=== PATIENT | female | born 1935 | race Caucasian/White ===

== ENCOUNTER 2018-03-10 22:43 | Inpatient (IN) | payer MEDICARE ==
[2018-03-10] MEDS ORDERED: Ondansetron PF 4 MG/2 ML Vial ONE (23:02)
[2018-03-10 23:07] LABS: Actual Bicarbonate (HCO3a) 22.5 mEq/L (22-28); Analyzer IN Cardio ER; Base Excess (BEa) -2.8 mEq/L (-2.0 to +3.0); Calcium, Ionized 1.22 mmol/L (1.12-1.30); Carboxyhemoglobin (COHb) 0.3 gm% (0.0-3.0); Hemoglobin (Hb) 13.5 g/dL (12.0-16.0); O2 Tension (PaO2) 144.8 mmHg (> 60.0); Potassium - ABG Lab 3.56 mmol/L (3.70-5.30); Puncture Site RRA; pH, Arterial 7.36 (7.35-7.45)
[2018-03-10] MEDS ORDERED: Lorazepam 2 MG/ML VIAL ONE (23:08)
[2018-03-10 23:29] LABS: #Basophils 0.1 thou/uL (0.0-0.2); #Eosinphils 0.2 thou/uL (0.0-0.7); #Monocytes 1.1 thou/uL (0.11-0.59); #Neutrophils 9.3 thou/uL (1.40-6.50); %Basophils 0.7 % (0.0-1.0); %Eosinophils 1.3 % (0.0-10.0); %Lymphocytes 27.2 % (21.0-51.0); %Monocytes 7.3 % (0.0-10.0); %Neutrophils 63.6 % (42.0-75.0); Hemoglobin 13.2 g/dL (12.0-16.0); Mean Corpuscular HGB CONC 31.9 g/dL (32.0-36.0); Mean Corpuscular Hemoglobin 30.2 pg (27.0-31.0); Mean Corpuscular Volume 94.9 fL (78.0-98.0); Mean Platelet Volume 7.2 fL (7.4-10.4); Platelet Count 413 thou/uL (130-400); RBC Distribution Width 14.4 % (11.5-14.5); Red Blood Cell (RBC) Count 4.36 mill/uL (4.20-5.40); White Blood Cell (WBC) Count 14.6 thou/uL (4.8-10.8)
--- NOTE | 2018-03-10 23:43 | RAD ---
CHEST ONE VIEW: 03/10/18 INDICATION: Heart problems. COPD with dyspnea. COMPARISON: Prior exam dated 12/19/16. FINDINGS: There is cardiomegaly and mild pulmonary vascular congestion. There is suggestion of tiny pleural eff usions. No acute osseous abnormality is evident. IMPRESSION: Cardiomegaly with mild pulmonary vascular congestion and small pleural effusions suspicious for CHF. POS: [facility]
[2018-03-10 23:50] LABS: ALT (SGPT) 10 U/L (8-55); AST (SGOT) 17 U/L (5-34); Albumin 3.9 g/dL (3.4-4.8); Alkaline Phosphatase 122 U/L (40-150); Anion Gap 11 mmol/L (10-20); BUN (Urea Nitrogen) 22 mg/dL (9.8-20.1); Bilirubin, Total 0.2 mg/dL (0.2-1.2); Calc. Creatinine Clearance 0 mL/min (70-130); Calcium 9.2 mg/dL (7.8-10.44); Carbon Dioxide 25 mmol/L (23-31); Chloride 110 mmol/L (98-107); Estimated GFR-MDRD 57; Globulin 3.3 g/dL (2.4-3.5); Glucose 174 mg/dL (83-110); Potassium 3.5 mmol/L (3.5-5.1); Protein, Total 7.2 g/dL (6.0-8.3); Sodium 142 mmol/L (136-145)
[2018-03-10] MEDS ORDERED: Azithromycin 500 MG VIAL ONE (23:59)
[2018-03-10] MEDS ORDERED: cefTRIAXone\\ROCEPHIN 2 GM VIAL ONE (23:59)
[2018-03-11 05:08] VITALS: BMI 30.7
[2018-03-11] MEDS ORDERED: Ondansetron ODT 4 MG TAB SL PRN (06:00)
[2018-03-11] MEDS ORDERED: Ondansetron PF 4 MG/2 ML Vial IVP PRN ×2 (06:00→06:37)
[2018-03-11] MEDS ORDERED: Acetaminophen 325 MG TAB PO PRN (06:00)
[2018-03-11] MEDS ORDERED: Loratadine 10 MG TAB PO PRN (06:37)
[2018-03-11] MEDS ORDERED: Bisacodyl 5 MG TAB PO PRN (06:37)
[2018-03-11] MEDS ORDERED: Cepastat Lozenges 1 LOZ PO PRN (06:37)
[2018-03-11] MEDS ORDERED: Promethazine 25 MG TAB PO PRN (06:37)
[2018-03-11] MEDS ORDERED: Ondansetron ODT 4 MG TAB PO PRN (06:37)
[2018-03-11] MEDS ORDERED: Acetaminophen 500 MG TAB PO PRN (06:37)
[2018-03-11] MEDS ORDERED: Bupropion 150 MG SR TAB PO SCH (09:00)
[2018-03-11] MEDS ORDERED: PARoxetine 20 MG TAB PO SCH (09:00)
[2018-03-11] MEDS: Enoxaparin Sodium 40 MG/0.4 ML SYRINGE SC SCH ×2 (09:46→09:52)
[2018-03-11] MEDS: predniSONE 20 MG TAB PO SCH ×2 (09:49→10:49)
[2018-03-11] MEDS: Losartan 25 MG TAB PO SCH (09:49)
[2018-03-11] MEDS: Aspirin 81 mg Enteric Coated Tablet PO SCH (09:50)
--- NOTE | 2018-03-11 11:23 | HP ---
DATE OF SERVICE: 03/11/2018 PRIMARY CARE PHYSICIAN: Howard Vasquez M.D. CHIEF COMPLAINT: Shortness of breath. HISTORY OF PRESENT ILLNESS: The patient states that ever since cold front with Halloween, she has struggled with some cough and wheeze. She is compliant with her home medications including Symbicort, ipratropium nebulized treatments p.r.n., albuterol sulfate nebulized treatments p.r.n. Following repeat cold front approximately 2 days ago, the patient decompensated, ended up tripoding last night and was unable to recover despite breathing treatment and called the fire department and was placed on BiPAP en route to the emergency department. The patient was successfully weaned to nasal cannula following several breathing treatments, steroids, and antibiotics. The patient has quit but long tobacco history over 20 years, has a heart history; however, no formal chest pains throughout this episode. Reports stable mood on current medications. REVIEW OF SYSTEMS: No fevers, no chills. Positive fatigue. No vision changes. Positive nasal congestion, runny nose, sore throat, cough, productive sputum, wheezing, shortness of breath, dyspnea at rest. No chest pain, no abdomen pain, no nausea, no vomiting, no diarrhea, no dysuria, no urinary frequency. No lower extremity edema, no confusion or syncopal episode. Formal review of past medical, social, surgical history includes allergies of PENICILLIN, CODEINE, ATORVASTATIN. HOME MEDICATIONS: Include levothyroxine 112 mcg, losartan 50 mg, Ambien 10 mg, paroxetine 40 mg, Wellbutrin-SR 150 mg b.i.d., Symbicort 160/4.5 two puffs twice daily, ipratropium bromide 0.02% solution p.r.n. scheduled b.i.d., albuterol sulfate 0.083% solution 2.5 mg 3 times a day p.r.n. nebulized treatment, aspirin 81 mg. PAST MEDICAL HISTORY: Includes coronary artery disease, essential hypertension , hypothyroidism, COPD, recurrent, major depression, currently in remission, seasonal allergies, statin intolerance. PAST SURGICAL HISTORY: Hysterectomy, appendectomy, coronary artery stent placement. SOCIAL HISTORY: Currently living in independent living with Senior assistance, retired teacher currently . Drinks caffeinated beverages, currently quit tobacco, quit date listed in 1961. FAMILY HISTORY: Significant for mother, father, heart disease. VITAL SIGNS: On arrival to floor, temperature of 98.1, pulse of 67, respiratory rate of 20, oxygen saturation 98% on room. The patient is 98% on 2.5 liters nasal cannula, blood pressure is 118/67. LABORATORY WORK: White blood cell count 14.6, hemoglobin of 13, platelet count of 413. Sodium of 142, potassium of 3.5, chloride of 110, CO2 of 25, creatinine 0.9, glucose of 174, AST of 17, ALT of 10. BNP of 124, albumin of 3.9. Chest x-ray consistent with small pleural effusion bilaterally; however, no lateral was obtained. Nasal swab for influenza was negative. PHYSICAL EXAMINATION: GENERAL: The patient is alert, oriented, in no acute distress. HEENT: Normocephalic, atraumatic. Extraocular movements are intact. Sclerae are white. Oral mucosa is moist. NECK: Supple. Nasal cannula in place. HEART: Regular rate and rhythm. No murmurs auscultated. LUNGS: Diminished breath sounds bilaterally, poor air movement, wheezes in the upper lung sexton , end expiratory only. ABDOMEN: Soft, nontender, positive bowel sounds throughout. EXTREMITIES: Lower extremities without cyanosis or edema. NEUROLOGIC: The patient is alert and oriented x3, no focal deficits. Speech is normal. ASSESSMENT: Chronic obstructive pulmonary disease exacerbation, pleural effusion, hypertension, hypothyroidism, possible coinfection of infectious bronchitis. PLAN: Continue azithromycin and Rocephin. Continue home medications, scheduled breathing treatments every 6 hours with p.r.n. in between. Prednisone 40 mg daily at this point. Allow the patient to rest today on nasal cannula. We will see through echo given pleural effusions and heart history, however, troponins on admit were negative. Patient's blood pressure currently controlled. Recent check of thyroid on outpatient basis was controlled. We will attempt to walk the patient likely tomorrow. Patient on deep venous thrombosis and gastroesophageal reflux disease prophylaxis with Protonix and Lovenox. MTDD
[2018-03-11] MEDS: Mometasone/Formoterol 120 PUFF INHALER INH SCH (18:58)
[2018-03-11] MEDS: Zolpidem Tartrate 5 MG TAB PO SCH (20:13)
[2018-03-11] MEDS: Azithromycin 500 MG in Sodium Chloride 0.9% 250 ML 250 ML IVPB SCH (23:29)
[2018-03-12] MEDS: cefTRIAXone\\ROCEPHIN 2 GM in Sodium Chloride 0.9% 100 ML IVPB SCH (01:19)
[2018-03-12 05:49] LABS: #Lymphocytes 1.9 thou/uL (1.20-3.40); #Monocytes 0.9 thou/uL (0.11-0.59); #Neutrophils 7.6 thou/uL (1.40-6.50); %Basophils 0.4 % (0.0-1.0); %Eosinophils 0.4 % (0.0-10.0); %Lymphocytes 18.1 % (21.0-51.0); %Monocytes 8.4 % (0.0-10.0); %Neutrophils 72.6 % (42.0-75.0); Hemoglobin 11.4 g/dL (12.0-16.0); Mean Corpuscular HGB CONC 31.1 g/dL (32.0-36.0); Mean Corpuscular Hemoglobin 29.7 pg (27.0-31.0); Mean Corpuscular Volume 95.6 fL (78.0-98.0); Mean Platelet Volume 7.8 fL (7.4-10.4); Platelet Count 375 thou/uL (130-400); RBC Distribution Width 14.5 % (11.5-14.5); Red Blood Cell (RBC) Count 3.82 mill/uL (4.20-5.40); White Blood Cell (WBC) Count 10.5 thou/uL (4.8-10.8)
[2018-03-12] MEDS: Levothyroxine Sodium 112 MCG TAB PO SCH (06:01)
[2018-03-12 06:10] LABS: ALT (SGPT) 8 U/L (8-55); AST (SGOT) 14 U/L (5-34); Albumin 3.4 g/dL (3.4-4.8); Alkaline Phosphatase 87 U/L (40-150); Anion Gap 10 mmol/L (10-20); BUN (Urea Nitrogen) 16 mg/dL (9.8-20.1); Bilirubin, Total 0.2 mg/dL (0.2-1.2); Calc. Creatinine Clearance 70 mL/min (70-130); Carbon Dioxide 27 mmol/L (23-31); Chloride 107 mmol/L (98-107); Estimated GFR-MDRD 70; Globulin 2.8 g/dL (2.4-3.5); Glucose 101 mg/dL (83-110); Potassium 3.7 mmol/L (3.5-5.1); Protein, Total 6.2 g/dL (6.0-8.3); Sodium 140 mmol/L (136-145)
[2018-03-12] MEDS: Mometasone/Formoterol 120 PUFF INHALER INH SCH ×2 (07:19→18:59)
[2018-03-12] MEDS: predniSONE 20 MG TAB PO SCH (08:34)
[2018-03-12] MEDS: Aspirin 81 mg Enteric Coated Tablet PO SCH (08:34)
[2018-03-12] MEDS: Losartan 25 MG TAB PO SCH (08:34)
--- NOTE | 2018-03-12 08:36 | RAD ---
2 VIEW CHEST: Date: 03/12/18 INDICATION: COPD. Reference made to 02/01/03. FINDINGS: There is stable linear scar at the right lower lung zone. Curvilinear density of the inferior left ch est may relate to atelectasis or scar. There is pleural based density at the inferior left hemithorax . Lungs are hyperinflated. There is mild enlargement of the cardiac silhouette. Vascular calcificatio ns present. IMPRESSION: 1. COPD and bilateral areas of parenchymal scar/atelectasis. 2. Pleural based thickening/mild fluid at the inferior left hemithorax. POS: [facility]
[2018-03-12] MEDS: Enoxaparin Sodium 40 MG/0.4 ML SYRINGE SC SCH (08:37)
--- NOTE | 2018-03-12 12:47 | PQF ---
CLINICAL DOCUMENTATION IMPROVEMENT CLARIFICATION FORM: ICD-10 Updated PLEASE DO AN ADDENDUM TO THE PROGRESS NOTE WITH ANY DOCUMENTATION UPDATES OR ADDITIONS AND CARRY THROUGH TO DC SUMMARY. THANK YOU. DATE: 03/12/18 ATTN: DR. GONZALEZ Please exercise your independent, professional judgment in responding to the clarification form. Clinical indicators are provided on the bottom of this form for your review Please check appropriate box(s): [ ] Acute Respiratory Failure: [ ] with Hypoxia[ ] with Hypercapnia [x ] Acute On Chronic Respiratory Failure: [ x ] with Hypoxia [ ] with Hypercapnia [ ] Acute Respiratory Failure due to: (etiology) [ ] Chronic Respiratory Failure only [ ] with Hypoxia [ ] with Hypercapnia [ ] Hypoxia [ ] Other diagnosis [ ] Unable to determine In addition, please specify: Present on Admission (POA): [x ] Yes [ ] No [ ] Unable to determine For continuity of documentation, please document condition throughout progress notes and discharge summary. Thank You. CLINICAL INDICATORS - SIGNS / SYMPTOMS / LABS ER NOTE: "EMS FOUND HER TRIPODING OVER SINK AT HER HOME SPEAKING IN 1-2 WORD SENTENCES." "DIFFUSE WHEEZING" RR22 RISKS: COPD EXACERBATION TREATMENT: BIPAP DUONEBS (03/11-PRESENT) DULERA (03/11-PRESENT) PREDNISONE (03/11-PRESENT) (This form is maintained as a part of the permanent medical record) 2014 [employer] All Rights Reserved CUCA [email or web address] Office: [phone] [facility]
--- NOTE | 2018-03-12 17:56 | PRG ---
DATE OF SERVICE: 03/12/2018 HISTORY OF PRESENT ILLNESS: The patient states that she has successfully coughed up quite a lot of thick green mucus from her chest, has had some easier time breathing, but remains short of breath with short stents of activity, plan to get up with walking program later this afternoon. The patient refused Lovenox and mood medications; however, is compliant with breathing treatments, antibiotics, and steroids. The patient verbalized understanding regarding clot risk, DVT prevention; however, wishes to mobilize herself rather than be sedentary as chief means for DVT prophylaxis. The patient had headache which was partially treated with Tylenol and then resolved with neb. No other acute complaints. Remains comfortable on oxygen, sitting still. VITAL SIGNS: Temperature of 98.0, pulse of 69, respiratory rate of 18, oxygen saturation 95% on 2 liters nasal cannula, blood pressure 135/70. LABORATORY DATA: White blood cell count improved to 10.5, platelet count of 375. Sodium of 140, potassium of 3.7, CO2 of 27, creatinine of 0.79, glucose of 101, AST of 14, ALT of 8, albumin 3.4. Chest x-ray still shows small pleural effusion, atelectasis and hyperinflation of lungs. GENERAL: The patient is alert and oriented, in no acute distress. HEENT: Normocephalic, atraumatic. Extraocular movements are intact. Sclerae are white. Nasal cannula in place. Oral mucosa is moist. NECK: Supple. HEART: Regular rate and rhythm. No murmurs auscultated. LUNGS: With bilateral end expiratory wheezes to lower bases with mucus plugging cleared with post-tussive effort of bronchial locations and coarse breath sounds bilaterally, otherwise no rhonchi or rales in bases. ABDOMEN: Soft, nontender, positive bowel sounds throughout. EXTREMITIES: Lower extremities without cyanosis or edema. Some bruising of upper and lower extremities from prior IV sites and bumps in the objects. NEUROLOGIC: The patient is alert and oriented x3, no focal deficits. Speech is normal. ASSESSMENT AND PLAN: Chronic obstructive pulmonary disease exacerbation, suspected infectious bronchitis, pleural effusion, hypertension, hypothyroidism, history of coronary artery disease. We will continue scheduled and p.r.n. breathing treatments, steroids, antibiotics, and oxygen therapy. Patient has slightly improved oxygenation. We will follow up on walking program. The patient is not ready for discharge at this point in time, likely will be able to go home with home health oxygen versus use of her prior compressor which is reported in storage, however, is not known if it is fully functional at this point in time. The patient's daughter is at bedside today, answered all questions prior to leaving. We will reluctantly hold Lovenox. The patient verbalized understanding of clot risk. She will mobilize instead. VAN
[2018-03-12] MEDS ORDERED: Aspirin/APAP/Caffeine Tab (Excedrin Migraine) PO PRN (17:59)
[2018-03-12] MEDS: Zolpidem Tartrate 5 MG TAB PO SCH (21:53)
[2018-03-12] MEDS: Azithromycin 500 MG in Sodium Chloride 0.9% 250 ML 250 ML IVPB SCH (22:00)
[2018-03-13] MEDS: cefTRIAXone\\ROCEPHIN 2 GM in Sodium Chloride 0.9% 100 ML IVPB SCH ×2 (00:59→23:19)
[2018-03-13 04:25] LABS: #Eosinphils 0.1 thou/uL (0.0-0.7); #Lymphocytes 2.5 thou/uL (1.20-3.40); #Monocytes 1.1 thou/uL (0.11-0.59); #Neutrophils 9.3 thou/uL (1.40-6.50); %Basophils 0.2 % (0.0-1.0); %Eosinophils 0.5 % (0.0-10.0); %Lymphocytes 19.5 % (21.0-51.0); %Monocytes 8.5 % (0.0-10.0); %Neutrophils 71.3 % (42.0-75.0); Hemoglobin 11.8 g/dL (12.0-16.0); Mean Corpuscular HGB CONC 31.7 g/dL (32.0-36.0); Mean Corpuscular Hemoglobin 30.2 pg (27.0-31.0); Mean Corpuscular Volume 95.3 fL (78.0-98.0); Mean Platelet Volume 7.5 fL (7.4-10.4); Platelet Count 389 thou/uL (130-400); RBC Distribution Width 14.3 % (11.5-14.5); Red Blood Cell (RBC) Count 3.91 mill/uL (4.20-5.40)
[2018-03-13 04:53] LABS: ALT (SGPT) 10 U/L (8-55); AST (SGOT) 17 U/L (5-34); Albumin 3.7 g/dL (3.4-4.8); Alkaline Phosphatase 95 U/L (40-150); Anion Gap 9 mmol/L (10-20); BUN (Urea Nitrogen) 19 mg/dL (9.8-20.1); Bilirubin, Total 0.2 mg/dL (0.2-1.2); Calc. Creatinine Clearance 70 mL/min (70-130); Calcium 9.3 mg/dL (7.8-10.44); Carbon Dioxide 31 mmol/L (23-31); Chloride 106 mmol/L (98-107); Estimated GFR-MDRD 70; Globulin 2.9 g/dL (2.4-3.5); Glucose 93 mg/dL (83-110); Potassium 3.1 mmol/L (3.5-5.1); Protein, Total 6.6 g/dL (6.0-8.3); Sodium 143 mmol/L (136-145)
[2018-03-13] MEDS: Levothyroxine Sodium 112 MCG TAB PO SCH (06:27)
[2018-03-13] MEDS: Mometasone/Formoterol 120 PUFF INHALER INH SCH ×2 (07:15→18:56)
[2018-03-13] MEDS: predniSONE 20 MG TAB PO SCH (09:07)
[2018-03-13] MEDS: Losartan 25 MG TAB PO SCH (09:07)
[2018-03-13] MEDS: Aspirin 81 mg Enteric Coated Tablet PO SCH (09:08)
[2018-03-13] MEDS ORDERED: Etodolac 200 MG CAP PO PRN (18:46)
[2018-03-13] MEDS: Cyclobenzaprine 10 MG TAB PO PRN (19:17)
[2018-03-13] MEDS: Zolpidem Tartrate 5 MG TAB PO SCH (20:37)
[2018-03-13] MEDS: Azithromycin 500 MG in Sodium Chloride 0.9% 250 ML 250 ML IVPB SCH (22:12)
[2018-03-14] MEDS: Levothyroxine Sodium 112 MCG TAB PO SCH (05:45)
[2018-03-14] MEDS: Mometasone/Formoterol 120 PUFF INHALER INH SCH ×2 (06:58→19:20)
[2018-03-14] MEDS: predniSONE 20 MG TAB PO SCH (08:31)
[2018-03-14] MEDS: Losartan 25 MG TAB PO SCH (08:31)
[2018-03-14] MEDS: Cyclobenzaprine 10 MG TAB PO PRN ×2 (13:34→21:59)
[2018-03-14] MEDS: Benzonatate 100 MG CAP PO PRN (20:49)
[2018-03-14] MEDS: Zolpidem Tartrate 5 MG TAB PO SCH (21:59)
[2018-03-14] MEDS: Azithromycin 500 MG in Sodium Chloride 0.9% 250 ML 250 ML IVPB SCH (22:00)
[2018-03-14] MEDS: cefTRIAXone\\ROCEPHIN 2 GM in Sodium Chloride 0.9% 100 ML IVPB SCH (23:29)
[2018-03-15] MEDS: Levothyroxine Sodium 112 MCG TAB PO SCH (06:22)
[2018-03-15] MEDS: Mometasone/Formoterol 120 PUFF INHALER INH SCH ×2 (06:57→19:07)
[2018-03-15] MEDS: predniSONE 20 MG TAB PO SCH (07:58)
[2018-03-15] MEDS: Losartan 25 MG TAB PO SCH (07:58)
[2018-03-15] MEDS: Benzonatate 100 MG CAP PO PRN ×2 (08:09→22:10)
[2018-03-15 08:43] LABS: #Basophils 0.1 thou/uL (0.0-0.2); #Eosinphils 0.2 thou/uL (0.0-0.7); #Lymphocytes 3.2 thou/uL (1.20-3.40); #Monocytes 0.8 thou/uL (0.11-0.59); #Neutrophils 5.1 thou/uL (1.40-6.50); %Basophils 0.9 % (0.0-1.0); %Eosinophils 2.4 % (0.0-10.0); %Monocytes 8.1 % (0.0-10.0); %Neutrophils 54.7 % (42.0-75.0); Hemoglobin 12.7 g/dL (12.0-16.0); Mean Corpuscular HGB CONC 31.4 g/dL (32.0-36.0); Mean Corpuscular Hemoglobin 29.6 pg (27.0-31.0); Mean Corpuscular Volume 94.4 fL (78.0-98.0); Mean Platelet Volume 7.3 fL (7.4-10.4); Platelet Count 430 thou/uL (130-400); RBC Distribution Width 14.3 % (11.5-14.5); Red Blood Cell (RBC) Count 4.29 mill/uL (4.20-5.40); White Blood Cell (WBC) Count 9.4 thou/uL (4.8-10.8)
[2018-03-15 09:00] LABS: ALT (SGPT) 10 U/L (8-55); AST (SGOT) 16 U/L (5-34); Albumin 3.8 g/dL (3.4-4.8); Alkaline Phosphatase 99 U/L (40-150); Anion Gap 13 mmol/L (10-20); BUN (Urea Nitrogen) 20 mg/dL (9.8-20.1); Bilirubin, Total 0.3 mg/dL (0.2-1.2); Calc. Creatinine Clearance 56 mL/min (70-130); Calcium 9.1 mg/dL (7.8-10.44); Carbon Dioxide 25 mmol/L (23-31); Chloride 105 mmol/L (98-107); Estimated GFR-MDRD 54; Globulin 3.2 g/dL (2.4-3.5); Glucose 99 mg/dL (83-110); Potassium 3.3 mmol/L (3.5-5.1); Sodium 140 mmol/L (136-145)
[2018-03-15] MEDS ORDERED: Potassium Chloride 20 MEQ TAB PO SCH (09:30)
--- NOTE | 2018-03-15 09:40 | PRG ---
DATE OF SERVICE: 03/15/2018 HISTORY OF PRESENT ILLNESS: The patient has been weaning down on oxygen requirement, still has a abhishek sty cough and poor air movement even immediately after breathing treatments. Has been able to ambula te some with walking program; however, has had significant muscle spasms around the accessory muscles of chest and lumbar spine and partially relieved by a muscle relaxer. The patient has been complian t with antibiotics and steroids. No fevers were reported. The patient has no new complaints other t orozco malaise, shortness of breath with activity and productive sputum. PHYSICAL EXAMINATION: VITAL SIGNS: Temperature of 98.4, pulse of 86, respiratory rate of 20, oxygen saturation 92% on room air, blood pressure 122/65. GENERAL: The patient is alert and oriented, in mild respiratory distress. HEENT: Head is normocephalic, atraumatic. Extraocular movements are intact. Oral mucosa is moist. NECK: Supple. HEART: Regular rate and rhythm. No murmurs auscultated. LUNGS: Poor air movement bilaterally with bronchial mucus plugging present with end expiratory wheez es even status post breathing treatment approximately 20 minutes prior to exam. ABDOMEN: Soft, nontender, positive bowel sounds throughout. EXTREMITIES: Lower extremities without cyanosis or edema. NEUROLOGIC: The patient is alert and oriented x3, no focal deficits. Speech is normal. LABORATORY DATA AND IMAGING: White blood count of 9.4, hemoglobin of 12.7, platelet count of 430. S odium of 140, potassium of 3.3, CO2 of 25, BUN of 20, creatinine of 0.99, glucose of 99. AST of 16, ALT of 10, albumin 3.8. Repeat chest x-ray pending. ASSESSMENT AND PLAN: Chronic obstructive pulmonary disease exacerbation with infectious bronchitis, pleural effusion, hypertension, hypothyroidism, coronary artery disease, and hypokalemia, replacing t he patient's potassium, checking magnesium. Continuing Rocephin. Completed azithromycin course. Co ntinuing steroids. Continuing scheduled breathing treatments with p.r.n. breathing treatments. Echo did not show diminished systolic function regarding patient's pleural effusion. Blood pressure has been controlled on home medications. The patient refuses Lovenox for deep venous thrombosis prophyla xis. The patient states she is getting up to chair in room. We will progress to chest physiotherapy as the patient still seems to be holding on some mucus preventing her from progressing further and s ee if she becomes more productive. She has been compliant prior to this week with incentive spiromet ry and pursed lip breathing.
--- NOTE | 2018-03-15 10:40 | RAD ---
CHEST 2 VIEWS: HISTORY: COPD. COMPARISON: Radiograph 03/12/2018. FINDINGS: Linear markings in the right middle lobe have improved. Mild blunting of the left lateral costophren ic sulcus. No pneumothorax. Cardiac silhouette and mediastinal contour is similar. IMPRESSION: 1. Interval improvement in linear opacity in the right middle lobe. 2. Left lateral hemithorax, likely pleural scarring. 3. Old compression deformity likely at L1. POS: [facility]
[2018-03-15] MEDS: Zolpidem Tartrate 5 MG TAB PO SCH (22:10)
[2018-03-15] MEDS: cefTRIAXone\\ROCEPHIN 2 GM in Sodium Chloride 0.9% 100 ML IVPB SCH (23:41)
[2018-03-16 04:24] VITALS: BP 138/55; TEMP 98
[2018-03-16] MEDS: Levothyroxine Sodium 112 MCG TAB PO SCH (06:11)
[2018-03-16] MEDS: Mometasone/Formoterol 120 PUFF INHALER INH SCH (08:02)
[2018-03-16] MEDS: Losartan 25 MG TAB PO SCH (08:19)
[2018-03-16] MEDS: predniSONE 20 MG TAB PO SCH (08:21)
--- NOTE | 2018-03-16 14:03 | DIS ---
DATE OF ADMISSION: 03/11/2018 DATE OF DISCHARGE: 03/16/2018 PRIMARY CARE PHYSICIAN: Howard Vasquez M.D. CHIEF COMPLAINT: Shortness of breath. HISTORY OF PRESENT ILLNESS: The patient was transported to the emergency room by EMS with BiPAP, was titrated down to nasal cannula, was weaned off during the hospital stay. Given patient's pleural e ffusion, echocardiogram was performed with preserved ejection fraction. No significant diastolic dys function commented on by Cardiology. EF was listed to be 50%-55% with normal chamber sizes. Chest x -ray showed improving pleural effusion throughout patient's stay. No signs of formal pneumonia; tonny shar, clinically, the patient was suffering from chronic obstructive pulmonary disease exacerbation wi th an infectious bronchitis. The patient had hypokalemia, which was improved following replacement. Magnesium was stable. Influenza swab was negative. The patient was treated with greater than 5 day s of Rocephin, greater than 3 days of azithromycin, and was discharged home without further antibioti cs, discharged home with Medrol Dosepak. MEDICATIONS: Home losartan 50 mg, Tessalon Perles 100 mg q.6 hours p.r.n. x10 days. Home Ambien 10 mg, home levothyroxine 112 mcg, home vitamin D 5000 units daily, home albuterol sulfate 90 mcg. Home respiratory medications include Symbicort 160/4.5, ipratropium bromide 0.02% 2.5 mL inhaled twice da jose. The patient states she has plenty of this. We will continue back home on baby aspirin 81 mg. During the patient's hospitalization, she refused deep vein thrombosis prophylaxis. Verbalized under standing regarding clot risk and was reportedly up to bedside and around the unit walking with walkin g program greater than 500 feet over the weekend. DISCHARGE CONDITION: Good. DISCHARGE DIET: Heart healthy. DISCHARGE FOLLOWUP: With myself, Dr. Howard Vasquez, in 7 days. DISCHARGE DIAGNOSES: Chronic obstructive pulmonary disease exacerbation, improved pleural effusion, hypertension, hypothyroidism, coronary artery disease, history of resolved hypokalemia.
== END 2018-03-16 10:50 | disposition home or self-care (01) | DRG 189 ==
LOC: ERS 22:43 → SURG A 03-11 00:08
PROVIDERS: ADMIT Family Medicine; ATTEND Family Medicine
PROC: 5A09357 Assistance with Respiratory Ventilation, Less than 24 Consecutive Hours, Continuous Positive Airway Pressure (ICD-10-PCS; principal; 2018-03-11)
DX: J96.01 Acute respiratory failure with hypoxia (principal); J90 Pleural effusion, not elsewhere classified; J44.1 Chronic obstructive pulmonary disease with (acute) exacerbation; J20.8 Acute bronchitis due to other specified organisms; Z79.899 Other long term (current) drug therapy; E87.6 Hypokalemia; I10 Essential (primary) hypertension; E03.9 Hypothyroidism, unspecified; I25.10 Atherosclerotic heart disease of native coronary artery without angina pectoris; Z88.0 Allergy status to penicillin; Z88.5 Allergy status to narcotic agent; Z88.8 Allergy status to other drugs, medicaments and biological substances; Z79.82 Long term (current) use of aspirin; J30.2 Other seasonal allergic rhinitis; Z95.5 Presence of coronary angioplasty implant and graft; Z87.891 Personal history of nicotine dependence
CPT/HCPCS: 36415; 71045; 71046; 80053; 82805; 83735; 83880; 85025; 87804; 93005; 93306; 94640; 94660; 94667; 94668; 94760; 96365; 96375; J0456; J0696; J1650; J2060; J2405; J7050; J7506; J7620

== ENCOUNTER 2019-04-20 20:02 | Inpatient (IN) | payer MEDICARE ==
[2019-04-20] MEDS ORDERED: Ondansetron PF 4 MG/2 ML Vial ONE (20:09)
--- NOTE | 2019-04-20 20:33 | RAD ---
PORTABLE CHEST ONE VIEW: 04/20/19 at 8:15 p.m. HISTORY: COPD. FINDINGS: Comparison made with exam of 03/15/18. Mild cardiomegaly is stable. The aorta is tortuous. The lungs are well expanded without lobar consoli dation, pneumothoraces or pleural effusions. There is no evidence of bobo pulmonary edema. IMPRESSION: No acute process. POS: [facility]
[2019-04-20 20:47] LABS: Base Excess-Venous 1.1 mmol/L (-2.0 to 3.0); Bicarbonate (HCO3v) 26.1 mmol/L (22.0-28.0); CO2 Tension (PvCO2) 41.9 mmHg (40.0-50.0); Calcium, Ionized 1.07 mmol/L (See Comments:); Chloride 107 mmol/L (98-107); Hemoglobin - Calc 15.2 g/dL (12.0-16.0); Potassium 3.8 mmol/L (3.5-5.1); Sodium 142 mmol/L (138-145); T. Carbon Dioxide 27.4 mmol/L (22.0-28.0); vO2 Saturation-calc 96.2 % (60.0-85.0)
[2019-04-21 01:05] LABS: #Basophils 0.1 thou/uL (0.0-0.2); #Eosinphils 0.3 thou/uL (0.0-0.7); #Lymphocytes 5.8 thou/uL (1.20-3.40); #Monocytes 1.1 thou/uL (0.11-0.59); #Neutrophils 5.2 thou/uL (1.40-6.50); %Basophils 0.9 % (0.0-1.0); %Eosinophils 2.5 % (0.0-10.0); %Lymphocytes 46.3 % (21.0-51.0); %Monocytes 8.6 % (0.0-10.0); %Neutrophils 41.7 % (42.0-75.0); Hemoglobin 14.1 g/dL (12.0-16.0); Mean Corpuscular HGB CONC 32.4 g/dL (32.0-36.0); Mean Corpuscular Hemoglobin 31.6 pg (27.0-31.0); Mean Corpuscular Volume 97.5 fL (78.0-98.0); Platelet Count 384 thou/uL (130-400); RBC Distribution Width 12.5 % (11.5-14.5); Red Blood Cell (RBC) Count 4.48 mill/uL (4.20-5.40); White Blood Cell (WBC) Count 12.5 thou/uL (4.8-10.8)
[2019-04-21 01:39] LABS: ALT (SGPT) 10 U/L (8-55); AST (SGOT) 21 U/L (5-34); Albumin 4.3 g/dL (3.4-4.8); Alkaline Phosphatase 118 U/L (40-110); Anion Gap 18 mmol/L (10-20); BUN (Urea Nitrogen) 18 mg/dL (9.8-20.1); Bilirubin, Total 0.2 mg/dL (0.2-1.2); Calc. Creatinine Clearance 0 mL/min (70-130); Calcium 9.9 mg/dL (7.8-10.44); Carbon Dioxide 21 mmol/L (23-31); Chloride 108 mmol/L (98-107); Estimated GFR-MDRD 66; Globulin 3.3 g/dL (2.4-3.5); Glucose 153 mg/dL (83-110); Potassium 4.3 mmol/L (3.5-5.1); Protein, Total 7.6 g/dL (6.0-8.3); Sodium 143 mmol/L (136-145)
[2019-04-21] MEDS ORDERED: Ondansetron PF 4 MG/2 ML Vial IVP PRN (03:23)
[2019-04-21] MEDS ORDERED: Acetaminophen 325 MG TAB PO PRN ×2 (03:23→07:27)
[2019-04-21] MEDS ORDERED: Ondansetron ODT 4 MG TAB SL PRN (03:23)
[2019-04-21] MEDS ORDERED: Bacteriostatic Water 30 ML VIAL FS PRN (04:14)
[2019-04-21 04:17] VITALS: BMI 29.3
[2019-04-21] MEDS ORDERED: methylPREDNISolone Sod Succ/PF 125 MG/2 ML VIAL IVP SCH (06:00)
[2019-04-21] MEDS ORDERED: Ondansetron ODT 4 MG TAB PO PRN (07:27)
[2019-04-21] MEDS ORDERED: Albuterol Sulfate 2.5 mg/3 ml Neb NEB PRN (07:27)
[2019-04-21] MEDS: Losartan 25 MG TAB PO SCH (08:11)
[2019-04-21] MEDS: Levothyroxine Sodium 112 MCG TAB PO SCH (08:11)
[2019-04-21] MEDS: Enoxaparin Sodium 40 MG/0.4 ML SYRINGE SC SCH (08:12)
--- NOTE | 2019-04-21 08:40 | HP ---
PRIMARY CARE PROVIDER: Howard Vasquez MD HISTORY OF PRESENT ILLNESS: [facility] The patient was markedly short of breath last night. She called 911. She was brought to the emergency room. She is having severe wheezing. She was given multiple medicines in the ambulance on the way here. She was treated in the emergency room and referred. She has had a positive cough, wheezing, has a history of COPD. Smoked in the past. No longer smokes. She denied any fever or chills. She was placed on oxygen, had O2 sats in the 92% range. She has initially had an elevated blood pressure. PAST MEDICAL HISTORY: Hypothyroidism, hypertension, coronary artery disease, COPD. PAST SURGICAL HISTORY: Includes hysterectomy, appendectomy, cardiac cath with PCI. CURRENT MEDICATIONS: Listed as, 1. Albuterol 2 puffs q.4 hours p.r.n. 2. Ambien 10 mg at bedtime. 3. Cozaar 50 mg a day. 4. Levothyroxine 112 mcg a day. 5. Vitamin D3. 6. She was also on aspirin 81 mg a day. ALLERGIES: LISTED TO PENICILLIN, CODEINE, AND STATINS. SOCIAL HISTORY: Lives independently. x16 years. Quit smoking decades ago. Drinks occasional alcohol. CODE STATUS: Full. SonBrock is surrogate decision maker. FAMILY HISTORY: Significant for coronary artery disease in both parents. REVIEW OF SYSTEMS: GENERAL: No headaches, dizziness, or fainting. EYES: No double vision, blurred vision, or flashing light. EARS, NOSE AND THROAT: No ear pain or drainage. No nasal bleeding. No trouble swallowing. CARDIAC: No pressured chest pain, orthopnea. RESPIRATIONS: See Present Illness. She states she has frequent exacerbations with sudden onset of cold weather, which has happened in the last couple days. GASTROINTESTINAL: She stated she vomited one time in the emergency room from the medicines given in the ambulance. Otherwise, she has had no nausea, abdominal pain, diarrhea, constipation. GENITOURINARY: No hematuria, dysuria. MUSCULOSKELETAL: No pain or swelling in arms or legs. NEUROLOGICAL: No strokes, seizures, or focal weakness. PSYCHIATRIC: History of anxiety, depression, currently in remission. SKIN: Easy bruising. No rash. HEME/LYMPH: No tender or swollen lymph nodes in the axilla, inguinal, cervical area. PHYSICAL EXAMINATION: GENERAL: She is alert, oriented, cooperative, mildly short of breath with exertion. VITAL SIGNS: Blood pressure 134/75. Currently, O2 saturation 89% on 2 L by nasal cannula, temperature 98, pulse 70, respirations 20. HEAD, EYES, EARS, NOSE, AND THROAT: Revealed pupils are equal, round, and reactive to light. Extraocular movements are intact. Sclerae are white. Tympanic membranes clear. Nose clear. Oral mucous membranes are wet with no oral lesions. NECK: Supple without jugular venous distention, adenopathy, or thyromegaly. CHEST: Hyper-resonant with expiratory wheezes in all sexton. HEART: Regular rate and rhythm. No appreciated murmurs or gallops. First and second heart sounds clear. ABDOMEN: Soft. Bowel sounds are normal. There is no hepatosplenomegaly. No mass. No rebound. EXTREMITIES: Reveal no cyanosis, clubbing, or edema. PULSES: Carotid and radial femoral and dorsalis pedis pulses palpable and symmetric. SKIN: Warm and dry without bruises or rash. HEME/LYMPH: No tender or swollen lymph nodes in axilla, inguinal, cervical area. NEUROLOGICAL: Cranial nerves 2 through 12 intact. Deep tendon reflexes intact. IMAGING STUDIES: Chest x-ray; personally reviewed, borderline cardiomegaly, chronic changes. No evidence of congestive heart failure or pneumonia. She does have flattened diaphragms consistent with COPD. LABORATORY DATA: White cell count elevated at 12.5, hemoglobin 14.1, platelet count 384,000. Arterial blood gas revealed a pH, venous blood gas not helpful. Comprehensive metabolic profile; sodium 143, potassium 4.3, chloride 108, CO2 21, BUN 18, creatinine 0.83, blood sugar 153. Liver function tests normal. CARDIOVASCULAR STUDIES: I find no EKG on the chart. Will order one. ADMITTING DIAGNOSES: 1. Acute respiratory failure with hypoxemia. 2. Chronic obstructive pulmonary disease exacerbation. 3. Hypertension. 4. Coronary artery disease. 5. Hypothyroidism. PLAN: 1. DuoNeb 3 mL q.4h schedule. 2. DuoNeb 2.5 mL q.2h p.r.n. 3. Supplemental O2. 4. Solu-Medrol 40 mg IV q.6 hours. 5. Dulera 2 puffs b.i.d. 6. Selected home medicines. 7. Suspect the patient will be in the hospital approximately 3 days. Job ID: [id number]
[2019-04-21] MEDS: Azithromycin 500 MG in Sodium Chloride 0.9% 250 ML 250 ML IVPB SCH (08:42)
[2019-04-21] MEDS: methylPREDNISolone Sod Succ 40 MG VIAL IVP SCH ×2 (12:42→18:19)
[2019-04-21] MEDS: Mometasone/Formoterol 120 PUFF INHALER INH SCH (18:33)
[2019-04-22] MEDS: Zolpidem Tartrate 5 MG TAB PO PRN ×2 (00:20→22:10)
[2019-04-22] MEDS: methylPREDNISolone Sod Succ 40 MG VIAL IVP SCH ×5 (05:26→23:53)
[2019-04-22 05:37] LABS: #Basophils 0.1 thou/uL (0.0-0.2); #Eosinphils 0.1 thou/uL (0.0-0.7); #Lymphocytes 0.9 thou/uL (1.20-3.40); #Monocytes 0.4 thou/uL (0.11-0.59); #Neutrophils 9.8 thou/uL (1.40-6.50); %Basophils 0.5 % (0.0-1.0); %Eosinophils 0.5 % (0.0-10.0); %Lymphocytes 7.9 % (21.0-51.0); %Monocytes 3.1 % (0.0-10.0); Hemoglobin 12.1 g/dL (12.0-16.0); Mean Corpuscular HGB CONC 32.5 g/dL (32.0-36.0); Mean Corpuscular Volume 98.4 fL (78.0-98.0); Mean Platelet Volume 7.6 fL (7.4-10.4); Platelet Count 354 thou/uL (130-400); RBC Distribution Width 12.5 % (11.5-14.5); Red Blood Cell (RBC) Count 3.79 mill/uL (4.20-5.40); White Blood Cell (WBC) Count 11.1 thou/uL (4.8-10.8)
[2019-04-22 05:50] LABS: Anion Gap 10 mmol/L (10-20); BUN (Urea Nitrogen) 23 mg/dL (9.8-20.1); Calc. Creatinine Clearance 69 mL/min (70-130); Calcium 9.1 mg/dL (7.8-10.44); Carbon Dioxide 26 mmol/L (23-31); Chloride 105 mmol/L (98-107); Estimated GFR-MDRD 73; Glucose 131 mg/dL (83-110); Potassium 4.3 mmol/L (3.5-5.1); Sodium 137 mmol/L (136-145)
[2019-04-22] MEDS ORDERED: Senokot S 8.6-50 MG TAB PO PRN (07:48)
[2019-04-22] MEDS ORDERED: Benzonatate 100 MG CAP PO PRN (07:48)
[2019-04-22] MEDS ORDERED: Sodium Chloride 0.65% Nasal 44 ML BOT EA NARE PRN (07:48)
[2019-04-22] MEDS ORDERED: Loperamide HCl 2 MG CAP PO PRN (07:48)
[2019-04-22] MEDS ORDERED: Loratadine 10 MG TAB PO PRN (07:48)
[2019-04-22] MEDS ORDERED: Calcium Carbonate 500 MG ChewTAB PO PRN (07:48)
[2019-04-22] MEDS ORDERED: hydrALAZINE 20 MG/ML VIAL SLOW IVP PRN (07:48)
[2019-04-22] MEDS ORDERED: Bisacodyl 10 MG SUPP PR PRN (07:48)
[2019-04-22] MEDS ORDERED: Cepastat Lozenges 1 LOZ PO PRN (07:48)
[2019-04-22] MEDS ORDERED: Artificial Tears 18 DROP/0.9 ML EA EYE PRN (07:48)
[2019-04-22] MEDS: Enoxaparin Sodium 40 MG/0.4 ML SYRINGE SC SCH (08:17)
[2019-04-22] MEDS: Levothyroxine Sodium 112 MCG TAB PO SCH (08:17)
[2019-04-22] MEDS: Azithromycin 500 MG in Sodium Chloride 0.9% 250 ML 250 ML IVPB SCH (08:17)
[2019-04-22] MEDS: Losartan 25 MG TAB PO SCH (08:17)
[2019-04-22] MEDS: Mometasone/Formoterol 120 PUFF INHALER INH SCH ×2 (11:17→19:51)
--- NOTE | 2019-04-22 11:55 | PDOC.HOSPP ---
- Subjective Encounter Date: 04/22/19 Encounter Time: 08:30 Subjective: Patient seen and examined. No new complaints. No overnight events - Objective Vital Signs & Weight: Vital Signs (12 hours) Temp Pulse Resp BP Pulse Ox 04/22/19 11:09 98.4 F 75 18 148/74 H 91 L 04/22/19 08:18 92 L 04/22/19 08:05 98.1 F 70 16 123/72 92 L 04/22/19 07:05 68 16 04/22/19 04:16 97.9 F 67 16 134/76 90 L Weight Weight 171 lb I&O: 04/21/19 04/22/19 04/23/19 06:59 06:59 06:59 Intake Total 720 Balance 720 Result Diagrams: 04/22/19 05:14 04/22/19 05:14 Radiology Reviewed by me: Yes Hospitalist ROS - Review of Systems Eyes: denies: pain, vision change, conjunctivae inflammation, eyelid inflammation, redness, other ENT: denies: ear pain, ear discharge, nose pain, nose discharge, nose congestion , mouth pain, mouth swelling, throat pain, throat swelling, other Respiratory: reports: cough, shortness of breath. denies: dry, hemoptysis, SOB with excertion, pleuritic pain, sputum, wheezing, other Cardiovascular: denies: chest pain, palpitations, orthopnea, paroxysmal noc. dyspnea, edema, light headedness, other Gastrointestinal: denies: nausea, vomiting, abdominal pain, diarrhea, constipation, melena, hematochezia, other Genitourinary: denies: dysuria, frequency, incontinence, hematuria, retention, other Musculoskeletal: denies: neck pain, shoulder pain, arm pain, back pain, hand pain, leg pain, foot pain, other - Medication Medications: Active Medications Generic Name Dose Route Start Last Admin Trade Name Freq PRN Reason Stop Dose Admin Albuterol Sulfate 2.5 mg 04/21/19 07:27 04/21/19 16:48 Ventolin NEB 2.5 mg [id number] PRN Administration SOB &/or Wheezing Albuterol/Ipratropium 3 ml 04/21/19 13:00 04/22/19 07:05 Duoneb NEB 3 ml [id number] IAN Administration Cholecalciferol 5,000 units 04/21/19 09:00 04/22/19 08:17 Vitamin D3 PO 5,000 units DAILY IAN Administration Enoxaparin Sodium 40 mg 04/21/19 09:00 04/22/19 08:17 Lovenox SC Not Given 0900 IAN Azithromycin 500 mg/ Sodium 250 mls @ 250 mls/hr 04/21/19 08:00 04/22/19 08: 17 Chloride IVPB 250 mls 0800 IAN Administration Levothyroxine Sodium 112 mcg 04/21/19 09:00 04/22/19 08:17 Synthroid PO 112 mcg DAILY IAN Administration Losartan Potassium 50 mg 04/21/19 09:00 04/22/19 08:17 Cozaar PO 50 mg DAILY IAN Administration Methylprednisolone Sodium Succinate 40 mg 04/21/19 12:00 04/22/19 05:26 Solu-Medrol IVP 40 mg Q6HR IAN Administration Mometasone Furoate/Formoterol Fumar 2 puff 04/21/19 18:30 04/22/19 11:17 Dulera 200 Mcg/5 Mcg Inhaler INH Not Given BID-RT IAN Zolpidem Tartrate 10 mg 04/22/19 00:15 04/22/19 00:20 Ambien PO 10 mg HS PRN Administration Insomnia - Exam General Appearance: NAD, awake alert Eye: PERRL, anicteric sclera ENT: normocephalic atraumatic, no oropharyngeal lesions Neck: supple, symmetric, no JVD, no thyromegaly Heart: RRR, no murmur, no gallops, no rubs Respiratory: no rales, rhonchi, wheezes Gastrointestinal: soft, non-tender, non-distended, normal bowel sounds Extremities: no cyanosis, no clubbing, no edema Skin: normal turgor, no lesions Neurological: no focal deficits Musculoskeletal: normal tone, normal strength Psychiatric: normal affect, normal behavior Hosp A/P (1) COPD exacerbation Code(s): J44.1 - CHRONIC OBSTRUCTIVE PULMONARY DISEASE W (ACUTE) EXACERBATION Status: Acute (2) Anxiety and depression Code(s): F41.8 - OTHER SPECIFIED ANXIETY DISORDERS Status: Chronic (3) CAD (coronary artery disease) Code(s): I25.10 - ATHSCL HEART DISEASE OF [place] CORONARY ARTERY W/O ANG PCTRS Status: Chronic (4) Hypothyroidism Code(s): E03.9 - HYPOTHYROIDISM, UNSPECIFIED Status: Resolved (5) Obesity (BMI 30.0-34.9) Code(s): E66.9 - OBESITY, UNSPECIFIED Status: Chronic - Plan old records reviewed/req, continue antibiotics, respiratory therapy 04/22/19-continue respiratory therapy, reduce steroid, medication reviewed and continue to provide supportive care
[2019-04-23] MEDS: methylPREDNISolone Sod Succ 40 MG VIAL IVP SCH (05:53)
[2019-04-23] MEDS: Mometasone/Formoterol 120 PUFF INHALER INH SCH (07:30)
[2019-04-23] MEDS: Azithromycin 500 MG in Sodium Chloride 0.9% 250 ML 250 ML IVPB SCH ×2 (08:19→08:22)
[2019-04-23] MEDS: Levothyroxine Sodium 112 MCG TAB PO SCH (08:23)
[2019-04-23] MEDS: Losartan 25 MG TAB PO SCH (08:23)
[2019-04-23] MEDS: Enoxaparin Sodium 40 MG/0.4 ML SYRINGE SC SCH (08:24)
--- NOTE | 2019-04-23 10:53 | DIS ---
DATE OF ADMISSION: 04/21/2019 DATE OF DISCHARGE: 04/23/2019 PRIMARY CARE PHYSICIAN: Howard Vasquez MD. DISCHARGE DISPOSITION: Home. PRIMARY DISCHARGE DIAGNOSIS: Chronic obstructive pulmonary disease exacerbation. SECONDARY DISCHARGE DIAGNOSES: 1. Coronary artery disease. 2. Anxiety and depression. 3. Obesity with BMI 30. 4. Coronary artery disease. 5. Hypothyroidism. 6. Chronic obstructive pulmonary disease. 7. Hypertension. PRIMARY PROCEDURE/OPERATION: None. RADIOLOGICAL INVESTIGATION: Chest x-ray on admission showed no acute cardiopulmonary process. SIGNIFICANT LABORATORY DATA: WBC 11.1, hemoglobin 12.1, and platelets 354. Sodium 137, potassium 4.3, BUN 23, creatinine 0.76, and calcium 9.1. LFT normal. Influenza screen negative. DISCHARGE MEDICATIONS: 1. Albuterol sulfate two puffs q.4 hourly p.r.n. 2. Vitamin D3, 5000 units p.o. daily. 3. Synthroid 112 mcg p.o. daily. 4. Ambien 10 mg p.o. at bedtime. 5. Losartan 50 mg p.o. daily. 6. Levaquin 500 mg p.o. daily. 7. Dulera 2-puff inhalation b.i.d. 8. Prednisone 20 mg b.i.d. for 7 days, then 20 mg daily for 7 days, and then 10 mg p.o. daily for 7 days. CONTRAINDICATION: None. CODE STATUS: Full code. INPATIENT SWEAT BAND SEWER: None. ALLERGIES: 1. CODEINE. 2. GUANFACINE. 3. MORPHINE. 4. PENICILLIN. DISCHARGE PLAN: Posthospital, the patient will follow up with primary care physician in 1 or 2 weeks. HOSPITAL COURSE: An 83-year-old female who has underlying COPD and because of cold weather, the patient was having increasing shortness of breath. The patient was admitted by Dr. Caro on April 21, 2019. Please see his H and P for further details. The patient was admitted for COPD exacerbation. The patient was admitted to medical floor, and she was treated with steroids, DuoNeb therapy, and empiric antibiotic therapy with optimum medical therapy. The patient's condition significantly improved, and the patient was expressing wish to go home today. On discharge, we have prescribed tapering doses of prednisone as well as Dulera inhaler as well as antibiotic therapy. The patient already has nebulizer machine at home. The patient was seen and examined at bedside today. PHYSICAL EXAMINATION: VITAL SIGNS: Currently, temperature 97.5, pulse 66, respiratory rate 18, saturation 92% on room air, and blood pressure 157/77. Weight 171 pounds. GENERAL: The patient is currently alert and awake. No acute distress. HEENT: Head; normocephalic, atraumatic. Eyes; pupils round, reactive to light. Extraocular muscle intact. ENT, oropharynx within normal limits. Moist mucous membranes. No oral lesion. No pharyngeal erythema. No exudate. NECK: Supple. No JVD. No meningeal signs of irritation. LUNGS: Clear to auscultation without any rhonchi or rales. CARDIAC: S1, S2. Regular without any murmur. ABDOMEN: Soft and benign without any tenderness. EXTREMITIES: No edema. NEUROLOGIC: Nonfocal examination. Job ID: [id number]
[2019-04-23 12:00] VITALS: BP 161/83; TEMP 97.9
--- NOTE | 2019-04-25 08:43 | PQF ---
AD JOHNSON COUNCIL C MD [id number] [facility] B- [id number] CLINICAL DOCUMENTATION CLARIFICATION FORM: POST DISCHARGE Addendum to original discharge summary date: ____ Late entry note date: __ DATE:04/25/2019 ATTN: CECI ROBLES MD Please exercise your independent, professional judgment in responding to the clarification form. Clinical indicators are provided on the bottom of this form for your review Please check appropriate box(s) Diagnosis occasioning on admission [ x] Acute respiratory failure with hypoxemia [c ] COPD Exacerbation [ ] Other diagnosis [ ] Unable to determine In addition, please specify: Present on Admission (POA): [ v ] Yes [ ] No [ ] Unable to determine For continuity of documentation, please document condition throughout progress notes and discharge summary. Thank You. CLINICAL INDICATORS - SIGNS / SYMPTOMS / LABS Resp-22- Documented in ED on 04/21 by Bryn Agee O2 sat 92 on 2L Oxygen-Documented in ED on 04/21 by Bryn Agee Wheezing present,Diffusely, Breath sounds diminished-Documented in ED on 04/21 by Bryn Agee Pt does not require O2 at home, Now requiring 4L NC-Documented in ED on 04/21 by Bryn Agee Acute respiratory failure with hypoxemia-Documented in H&P on 04/21 by Ceci Robles MD COPD Exacerbation-Documented in H&P on 04/21 by Ceci Robles MD RISK FACTORS Acute respiratory failure with hypoxemia-Documented in H&P on 04/21 by Ceci Robles MD COPD Exacerbation-Documented in H&P on 04/21 by Ceci Robles MD HTN-Documented in H&P on 04/21 by Ceci Robles MD CAD-Documented in H&P on 04/21 by Ceci Robles MD TREATMENTS: Supplemental O2-Documented in H&P on 04/21 by Ceci Robles MD Solu-medrol 40 mg IV -Documented in H&P on 04/21 by Ceci Robles MD DuoNeb 2.5 ml-Documented in H&P on 04/21 by Ceci Robles MD [employer] (This form is maintained as a part of the permanent medical record) 2014 [employer]. All Rights Reserved [email or web address] [email or web address] [not provided] MTDD
== END 2019-04-23 12:10 | disposition home or self-care (01) | DRG 189 ==
LOC: ERS 20:02 → SURG B 04-21 02:17 → OBSVTOIN 04-21 07:27
PROVIDERS: ADMIT Internal Medicine; ATTEND Internal Medicine
DX: J96.01 Acute respiratory failure with hypoxia (principal); J44.1 Chronic obstructive pulmonary disease with (acute) exacerbation; I25.10 Atherosclerotic heart disease of native coronary artery without angina pectoris; F32.9 Major depressive disorder, single episode, unspecified; F41.9 Anxiety disorder, unspecified; E66.9 Obesity, unspecified; Z68.30 Body mass index [BMI] 30.0-30.9, adult; E03.9 Hypothyroidism, unspecified; I10 Essential (primary) hypertension; Z88.5 Allergy status to narcotic agent; Z88.0 Allergy status to penicillin; Z88.8 Allergy status to other drugs, medicaments and biological substances; E11.9 Type 2 diabetes mellitus without complications; I25.2 Old myocardial infarction; Z90.710 Acquired absence of both cervix and uterus; Z87.891 Personal history of nicotine dependence; F40.240 Claustrophobia
CPT/HCPCS: 36415; 71045; 80048; 80053; 82330; 82435; 82803; 83880; 84132; 84295; 84484; 85014; 85025; 87804; 94640; 96374; J0456; J2405; J2920; J2930; J7050; J7611; J7620

== ENCOUNTER 2021-05-22 17:40 | Inpatient (IN) | payer MEDICARE ==
[2021-05-22] MEDS ORDERED: Dexamethasone 4 mg/ml Vial ONE (18:13)
[2021-05-22 18:22] LABS: #Eosinphils 0.1 thou/uL (0.0-0.7); #Lymphocytes 2.8 thou/uL (1.20-3.40); #Monocytes 0.6 thou/uL (0.11-0.59); #Neutrophils 3.4 thou/uL (1.40-6.50); %Basophils 0.7 % (0.0-1.0); %Eosinophils 1.7 % (0.0-10.0); %Monocytes 8.4 % (0.0-10.0); %Neutrophils 49.2 % (42.0-75.0); Hemoglobin 14.3 g/dL (12.0-16.0); Mean Corpuscular HGB CONC 32.3 g/dL (32.0-36.0); Mean Corpuscular Volume 99.1 fL (78.0-98.0); Mean Platelet Volume 7.3 fL (7.4-10.4); Platelet Count 292 thou/uL (130-400); RBC Distribution Width 12.2 % (11.5-14.5); Red Blood Cell (RBC) Count 4.47 mill/uL (4.20-5.40); White Blood Cell (WBC) Count 6.9 thou/uL (4.8-10.8)
[2021-05-22 18:44] LABS: ALT (SGPT) 9 U/L (8-55); AST (SGOT) 19 U/L (5-34); Alkaline Phosphatase 73 U/L (40-110); Anion Gap 16 mmol/L (10-20); BUN (Urea Nitrogen) 13 mg/dL (9.8-20.1); Bilirubin, Total 0.3 mg/dL (0.2-1.2); Calc. Creatinine Clearance 0 mL/min (70-130); Carbon Dioxide 24 mmol/L (23-31); Chloride 106 mmol/L (98-107); Glucose 115 mg/dL (83-110); Potassium 3.8 mmol/L (3.5-5.1); Sodium 142 mmol/L (136-145)
[2021-05-22 21:16] LABS: SARS-CoV-2 NAA Rapid Test DETECTED (NotDetected)
[2021-05-23] MEDS ORDERED: Zolpidem Tartrate 5 MG TAB PO SCH (01:30)
[2021-05-23] MEDS ORDERED: Ondansetron PF 4 MG/2 ML Vial IVP PRN (05:29)
[2021-05-23] MEDS ORDERED: Ondansetron ODT 4 MG TAB PO PRN (05:29)
[2021-05-23] MEDS ORDERED: Acetaminophen 650 MG Suppository PR PRN (05:29)
[2021-05-23] MEDS ORDERED: Benzonatate 100 MG CAP PO PRN (05:54)
[2021-05-23] MEDS: Enoxaparin Sodium 40 MG/0.4 ML SYRINGE SC SCH ×4 (06:08→22:16)
[2021-05-23] MEDS ORDERED: Furosemide 20 MG/2 ML VIAL SLOW IVP SCH (06:30)
[2021-05-23] MEDS: Azithromycin 500 MG in Sodium Chloride 0.9% 250 ML 250 ML IVPB SCH (08:05)
[2021-05-23] MEDS: Ascorbic Acid 500 mg Chewable Tablet PO SCH (08:12)
[2021-05-23] MEDS: guaiFENesin ER 600 MG TAB PO SCH ×2 (08:13→10:24)
[2021-05-23] MEDS: Cholecalciferol (Vitamin D3) 400 UNITS TAB PO SCH (08:13)
[2021-05-23] MEDS: Zinc Sulfate 220 MG CAP PO SCH (08:13)
[2021-05-23] MEDS: Pantoprazole 40 MG VIAL IVP SCH (08:14)
[2021-05-23] MEDS: Furosemide 20 MG/2 ML VIAL SLOW IVP SCH (08:14)
[2021-05-23] MEDS: Albuterol 200 PUFF (6.7GM INHALER) INH SCH ×5 (08:41→21:38)
[2021-05-23] MEDS ORDERED: Enoxaparin Sodium 40 MG/0.4 ML SYRINGE SC SCH (09:00)
[2021-05-23] MEDS: Dexamethasone 10 MG in Sodium Chloride 0.9% 50 ML IVPB SCH (10:16)
[2021-05-23] MEDS: Zolpidem Tartrate 5 MG TAB PO PRN (21:37)
[2021-05-23] MEDS: Acetaminophen 325 MG TAB PO PRN (21:40)
[2021-05-24] MEDS: Albuterol 200 PUFF (6.7GM INHALER) INH SCH ×6 (03:53→22:31)
[2021-05-24] MEDS: Levothyroxine Sodium 112 MCG TAB PO SCH (06:21)
[2021-05-24] MEDS: Azithromycin 500 MG in Sodium Chloride 0.9% 250 ML 250 ML IVPB SCH (08:06)
[2021-05-24] MEDS: Zinc Sulfate 220 MG CAP PO SCH (08:07)
[2021-05-24] MEDS: Cholecalciferol (Vitamin D3) 400 UNITS TAB PO SCH (08:07)
[2021-05-24] MEDS: Enoxaparin Sodium 40 MG/0.4 ML SYRINGE SC SCH ×2 (08:07→20:54)
[2021-05-24] MEDS: Ascorbic Acid 500 mg Chewable Tablet PO SCH (08:07)
[2021-05-24] MEDS: Pantoprazole 40 MG VIAL IVP SCH (08:36)
[2021-05-24] MEDS: Furosemide 20 MG/2 ML VIAL SLOW IVP SCH (08:36)
[2021-05-24 09:16] LABS: #Basophils 0.1 thou/uL (0.0-0.2); #Monocytes 0.5 thou/uL (0.11-0.59); #Neutrophils 3.5 thou/uL (1.40-6.50); %Basophils 1.1 % (0.0-1.0); %Eosinophils 0.4 % (0.0-10.0); %Lymphocytes 33.3 % (21.0-51.0); %Monocytes 7.5 % (0.0-10.0); %Neutrophils 57.7 % (42.0-75.0); Hemoglobin 13.8 g/dL (12.0-16.0); Mean Corpuscular HGB CONC 31.9 g/dL (32.0-36.0); Mean Corpuscular Hemoglobin 31.4 pg (27.0-31.0); Mean Corpuscular Volume 98.4 fL (78.0-98.0); Mean Platelet Volume 7.6 fL (7.4-10.4); Platelet Count 311 thou/uL (130-400); RBC Distribution Width 12.2 % (11.5-14.5)
[2021-05-24 09:32] LABS: Anion Gap 17 mmol/L (10-20); BUN (Urea Nitrogen) 21 mg/dL (9.8-20.1); Calc. Creatinine Clearance 63 mL/min (70-130); Calcium 9.2 mg/dL (7.8-10.44); Carbon Dioxide 23 mmol/L (23-31); Chloride 104 mmol/L (98-107); Glucose 113 mg/dL (83-110); Potassium 3.3 mmol/L (3.5-5.1); Sodium 141 mmol/L (136-145)
[2021-05-24] MEDS: Dexamethasone 10 MG in Sodium Chloride 0.9% 50 ML IVPB SCH (10:28)
[2021-05-24 11:23] LABS: Hemoglobin A1c 5.5 % (4.0-6.0)
[2021-05-24] MEDS: Mometasone 200 MCG/Formoterol 5 MCG 120 PUFF INHALER INH SCH (18:45)
[2021-05-24] MEDS ORDERED: Lorazepam 0.5 MG TAB PO PRN (21:10)
[2021-05-24] MEDS: Acetaminophen 325 MG TAB PO PRN (21:19)
[2021-05-24] MEDS: Zolpidem Tartrate 5 MG TAB PO PRN (21:19)
[2021-05-25] MEDS: Albuterol 200 PUFF (6.7GM INHALER) INH SCH ×6 (02:49→21:46)
[2021-05-25] MEDS: Mometasone 200 MCG/Formoterol 5 MCG 120 PUFF INHALER INH SCH ×2 (06:24→21:46)
[2021-05-25] MEDS: Levothyroxine Sodium 112 MCG TAB PO SCH (06:24)
[2021-05-25] MEDS: Ascorbic Acid 500 mg Chewable Tablet PO SCH (08:24)
[2021-05-25] MEDS: Cholecalciferol (Vitamin D3) 400 UNITS TAB PO SCH (08:25)
[2021-05-25] MEDS: Zinc Sulfate 220 MG CAP PO SCH (08:25)
[2021-05-25] MEDS: Azithromycin 500 MG in Sodium Chloride 0.9% 250 ML 250 ML IVPB SCH (08:25)
[2021-05-25] MEDS: Furosemide 20 MG/2 ML VIAL SLOW IVP SCH (08:25)
[2021-05-25] MEDS: Pantoprazole 40 MG VIAL IVP SCH (08:34)
[2021-05-25] MEDS: Enoxaparin Sodium 40 MG/0.4 ML SYRINGE SC SCH ×3 (08:34→21:44)
[2021-05-25] MEDS: Dexamethasone 10 MG in Sodium Chloride 0.9% 50 ML IVPB SCH (08:34)
[2021-05-25] MEDS: Acetaminophen 325 MG TAB PO PRN (21:41)
[2021-05-25] MEDS: Zolpidem Tartrate 5 MG TAB PO PRN (21:41)
[2021-05-26] MEDS: Albuterol 200 PUFF (6.7GM INHALER) INH SCH ×5 (04:44→21:17)
[2021-05-26] MEDS: Levothyroxine Sodium 112 MCG TAB PO SCH (05:40)
[2021-05-26] MEDS: Mometasone 200 MCG/Formoterol 5 MCG 120 PUFF INHALER INH SCH ×2 (06:58→21:17)
[2021-05-26] MEDS: Enoxaparin Sodium 40 MG/0.4 ML SYRINGE SC SCH ×2 (08:21→21:17)
[2021-05-26] MEDS: Furosemide 20 MG/2 ML VIAL SLOW IVP SCH ×2 (08:21→21:25)
[2021-05-26] MEDS: Ascorbic Acid 500 mg Chewable Tablet PO SCH (08:21)
[2021-05-26] MEDS: Cholecalciferol (Vitamin D3) 400 UNITS TAB PO SCH (08:21)
[2021-05-26] MEDS: Pantoprazole 40 MG VIAL IVP SCH (08:21)
[2021-05-26] MEDS: Zinc Sulfate 220 MG CAP PO SCH (08:21)
[2021-05-26 08:53] LABS: #Lymphocytes 1.6 thou/uL (1.20-3.40); #Monocytes 0.8 thou/uL (0.11-0.59); #Neutrophils 4.7 thou/uL (1.40-6.50); %Basophils 0.2 % (0.0-1.0); %Eosinophils 0.6 % (0.0-10.0); %Lymphocytes 22.4 % (21.0-51.0); %Monocytes 10.8 % (0.0-10.0); Hemoglobin 14.2 g/dL (12.0-16.0); Mean Corpuscular HGB CONC 32.7 g/dL (32.0-36.0); Mean Corpuscular Hemoglobin 31.9 pg (27.0-31.0); Mean Corpuscular Volume 97.6 fL (78.0-98.0); Mean Platelet Volume 7.5 fL (7.4-10.4); Platelet Count 376 thou/uL (130-400); RBC Distribution Width 12.1 % (11.5-14.5); Red Blood Cell (RBC) Count 4.44 mill/uL (4.20-5.40); White Blood Cell (WBC) Count 7.1 thou/uL (4.8-10.8)
[2021-05-26 09:07] LABS: Anion Gap 17 mmol/L (10-20); BUN (Urea Nitrogen) 25 mg/dL (9.8-20.1); CRP (Inflammatory) 0.74 mg/dL (= or < 0.5); Calc. Creatinine Clearance 69 mL/min (70-130); Calcium 9.4 mg/dL (7.8-10.44); Carbon Dioxide 25 mmol/L (23-31); Chloride 103 mmol/L (98-107); Glucose 92 mg/dL (83-110); Potassium 3.4 mmol/L (3.5-5.1); Sodium 142 mmol/L (136-145)
[2021-05-26] MEDS: Dexamethasone 10 MG in Sodium Chloride 0.9% 50 ML IVPB SCH (09:58)
[2021-05-26] MEDS: Azithromycin 500 MG in Sodium Chloride 0.9% 250 ML 250 ML IVPB SCH (09:58)
[2021-05-26] MEDS ORDERED: Potassium Chloride 20 MEQ TAB PO SCH (11:15)
[2021-05-26] MEDS: Acetaminophen 325 MG TAB PO PRN (21:24)
[2021-05-26] MEDS: Zolpidem Tartrate 5 MG TAB PO PRN (21:24)
[2021-05-27] MEDS: Albuterol 200 PUFF (6.7GM INHALER) INH SCH ×6 (00:17→20:57)
[2021-05-27] MEDS: Mometasone 200 MCG/Formoterol 5 MCG 120 PUFF INHALER INH SCH ×2 (05:32→20:57)
[2021-05-27] MEDS: Levothyroxine Sodium 112 MCG TAB PO SCH (05:34)
[2021-05-27] MEDS: Azithromycin 500 MG in Sodium Chloride 0.9% 250 ML 250 ML IVPB SCH (08:50)
[2021-05-27] MEDS: Potassium Chloride 20 MEQ TAB PO SCH (08:51)
[2021-05-27] MEDS: Furosemide 20 MG/2 ML VIAL SLOW IVP SCH ×2 (08:51→20:57)
[2021-05-27] MEDS: Dexamethasone 10 MG in Sodium Chloride 0.9% 50 ML IVPB SCH (08:51)
[2021-05-27] MEDS: Cholecalciferol (Vitamin D3) 400 UNITS TAB PO SCH (08:51)
[2021-05-27] MEDS: Ascorbic Acid 500 mg Chewable Tablet PO SCH (08:51)
[2021-05-27] MEDS: Zinc Sulfate 220 MG CAP PO SCH (08:51)
[2021-05-27] MEDS: Pantoprazole 40 MG VIAL IVP SCH (08:51)
[2021-05-27] MEDS: Enoxaparin Sodium 40 MG/0.4 ML SYRINGE SC SCH ×2 (08:52→20:57)
[2021-05-27] MEDS ORDERED: Iopamidol 370 76% 50 ML VIAL FS ONE (10:18)
[2021-05-27] MEDS: Acetaminophen 325 MG TAB PO PRN (20:56)
[2021-05-27] MEDS: Zolpidem Tartrate 5 MG TAB PO PRN (20:56)
[2021-05-28] MEDS: Albuterol 200 PUFF (6.7GM INHALER) INH SCH ×6 (04:11→21:09)
[2021-05-28] MEDS: Levothyroxine Sodium 112 MCG TAB PO SCH (05:05)
[2021-05-28] MEDS: Mometasone 200 MCG/Formoterol 5 MCG 120 PUFF INHALER INH SCH ×2 (05:10→21:09)
[2021-05-28] MEDS: Azithromycin 500 MG in Sodium Chloride 0.9% 250 ML 250 ML IVPB SCH (08:28)
[2021-05-28] MEDS: Potassium Chloride 20 MEQ TAB PO SCH (08:29)
[2021-05-28] MEDS: Zinc Sulfate 220 MG CAP PO SCH (08:29)
[2021-05-28] MEDS: Cholecalciferol (Vitamin D3) 400 UNITS TAB PO SCH (08:29)
[2021-05-28] MEDS: Ascorbic Acid 500 mg Chewable Tablet PO SCH (08:30)
[2021-05-28] MEDS: Furosemide 20 MG/2 ML VIAL SLOW IVP SCH (08:31)
[2021-05-28] MEDS: Enoxaparin Sodium 40 MG/0.4 ML SYRINGE SC SCH ×2 (08:31→21:08)
[2021-05-28] MEDS: Pantoprazole 40 MG VIAL IVP SCH (08:31)
[2021-05-28] MEDS: Dexamethasone 10 MG in Sodium Chloride 0.9% 50 ML IVPB SCH (10:32)
[2021-05-28 12:04] LABS: #Eosinphils 0.1 thou/uL (0.0-0.7); #Lymphocytes 1.3 thou/uL (1.20-3.40); #Monocytes 0.7 thou/uL (0.11-0.59); #Neutrophils 10.4 thou/uL (1.40-6.50); %Basophils 0.1 % (0.0-1.0); %Eosinophils 0.7 % (0.0-10.0); %Lymphocytes 10.5 % (21.0-51.0); %Monocytes 5.8 % (0.0-10.0); Hemoglobin 14.7 g/dL (12.0-16.0); Mean Corpuscular HGB CONC 31.3 g/dL (32.0-36.0); Mean Corpuscular Hemoglobin 30.7 pg (27.0-31.0); Mean Platelet Volume 7.3 fL (7.4-10.4); Platelet Count 436 thou/uL (130-400); RBC Distribution Width 12.1 % (11.5-14.5); Red Blood Cell (RBC) Count 4.77 mill/uL (4.20-5.40); White Blood Cell (WBC) Count 12.5 thou/uL (4.8-10.8)
[2021-05-28 12:07] LABS: Anion Gap 16 mmol/L (10-20); BUN (Urea Nitrogen) 25 mg/dL (9.8-20.1); CRP (Inflammatory) 2.67 mg/dL (= or < 0.5); Calc. Creatinine Clearance 62 mL/min (70-130); Calcium 9.4 mg/dL (7.8-10.44); Carbon Dioxide 27 mmol/L (23-31); Chloride 101 mmol/L (98-107); Glucose 125 mg/dL (83-110); Potassium 3.4 mmol/L (3.5-5.1); Sodium 141 mmol/L (136-145)
[2021-05-28] MEDS: ALPRAZolam 0.25 MG TAB PO PRN (12:08)
[2021-05-28] MEDS ORDERED: Dexamethasone 10 MG in Sodium Chloride 0.9% 50 ML IVPB SCH (21:00)
[2021-05-28] MEDS: Acetaminophen 325 MG TAB PO PRN (21:06)
[2021-05-28] MEDS: Zolpidem Tartrate 5 MG TAB PO PRN (21:07)
[2021-05-28] MEDS: Dexamethasone 10 MG/ML VIAL SLOW IVP SCH (21:08)
[2021-05-28] MEDS: Ipratropium Oral Inhaler INH SCH (21:09)
[2021-05-29] MEDS: Albuterol 200 PUFF (6.7GM INHALER) INH SCH ×6 (02:12→21:10)
[2021-05-29] MEDS: Mometasone 200 MCG/Formoterol 5 MCG 120 PUFF INHALER INH SCH ×3 (05:22→18:13)
[2021-05-29] MEDS: Ipratropium Oral Inhaler INH SCH ×5 (05:23→19:51)
[2021-05-29] MEDS: Levothyroxine Sodium 112 MCG TAB PO SCH (05:52)
[2021-05-29 06:50] LABS: #Eosinphils 0.1 thou/uL (0.0-0.7); #Lymphocytes 0.8 thou/uL (1.20-3.40); #Monocytes 0.6 thou/uL (0.11-0.59); #Neutrophils 6.6 thou/uL (1.40-6.50); %Basophils 0.1 % (0.0-1.0); %Eosinophils 1.3 % (0.0-10.0); %Lymphocytes 9.8 % (21.0-51.0); %Monocytes 7.3 % (0.0-10.0); %Neutrophils 81.6 % (42.0-75.0); Hemoglobin 13.5 g/dL (12.0-16.0); Mean Corpuscular HGB CONC 32.5 g/dL (32.0-36.0); Mean Corpuscular Hemoglobin 32.1 pg (27.0-31.0); Mean Corpuscular Volume 98.6 fL (78.0-98.0); Mean Platelet Volume 7.3 fL (7.4-10.4); Platelet Count 392 thou/uL (130-400); RBC Distribution Width 12.2 % (11.5-14.5); Red Blood Cell (RBC) Count 4.22 mill/uL (4.20-5.40); White Blood Cell (WBC) Count 8.1 thou/uL (4.8-10.8)
[2021-05-29 07:05] LABS: Anion Gap 17 mmol/L (10-20); BUN (Urea Nitrogen) 25 mg/dL (9.8-20.1); CRP (Inflammatory) 3.16 mg/dL (= or < 0.5); Calc. Creatinine Clearance 73 mL/min (70-130); Calcium 9.2 mg/dL (7.8-10.44); Carbon Dioxide 25 mmol/L (23-31); Chloride 102 mmol/L (98-107); Glucose 123 mg/dL (83-110); Potassium 3.8 mmol/L (3.5-5.1); Sodium 140 mmol/L (136-145)
[2021-05-29] MEDS: Pantoprazole 40 MG VIAL IVP SCH (09:09)
[2021-05-29] MEDS: Enoxaparin Sodium 40 MG/0.4 ML SYRINGE SC SCH ×3 (09:09→19:52)
[2021-05-29] MEDS: Cholecalciferol (Vitamin D3) 400 UNITS TAB PO SCH (09:10)
[2021-05-29] MEDS: Ascorbic Acid 500 mg Chewable Tablet PO SCH (09:10)
[2021-05-29] MEDS: Dexamethasone 10 MG/ML VIAL SLOW IVP SCH ×2 (09:10→19:47)
[2021-05-29] MEDS: Zinc Sulfate 220 MG CAP PO SCH (09:10)
[2021-05-29] MEDS: ALPRAZolam 0.25 MG TAB PO PRN ×2 (14:10→21:08)
[2021-05-29] MEDS: Zolpidem Tartrate 5 MG TAB PO PRN (21:08)
[2021-05-30] MEDS: Albuterol 200 PUFF (6.7GM INHALER) INH SCH ×6 (03:44→23:59)
[2021-05-30] MEDS: Levothyroxine Sodium 112 MCG TAB PO SCH (06:13)
[2021-05-30] MEDS: Mometasone 200 MCG/Formoterol 5 MCG 120 PUFF INHALER INH SCH ×2 (06:17→18:13)
[2021-05-30] MEDS: Ascorbic Acid 500 mg Chewable Tablet PO SCH (08:29)
[2021-05-30] MEDS: Zinc Sulfate 220 MG CAP PO SCH (08:29)
[2021-05-30] MEDS: Cholecalciferol (Vitamin D3) 400 UNITS TAB PO SCH (08:29)
[2021-05-30] MEDS: Dexamethasone 10 MG/ML VIAL SLOW IVP SCH ×2 (08:29→20:15)
[2021-05-30] MEDS: Pantoprazole 40 MG VIAL IVP SCH (08:30)
[2021-05-30] MEDS: Ipratropium Oral Inhaler INH SCH ×4 (08:31→20:25)
[2021-05-30 08:36] LABS: #Eosinphils 0.1 thou/uL (0.0-0.7); #Lymphocytes 0.8 thou/uL (1.20-3.40); #Monocytes 0.3 thou/uL (0.11-0.59); #Neutrophils 7.1 thou/uL (1.40-6.50); %Basophils 0.2 % (0.0-1.0); %Eosinophils 0.8 % (0.0-10.0); %Lymphocytes 9.6 % (21.0-51.0); %Monocytes 3.8 % (0.0-10.0); %Neutrophils 85.6 % (42.0-75.0); Hemoglobin 14.4 g/dL (12.0-16.0); Mean Corpuscular HGB CONC 32.3 g/dL (32.0-36.0); Mean Corpuscular Hemoglobin 31.9 pg (27.0-31.0); Mean Corpuscular Volume 98.8 fL (78.0-98.0); Mean Platelet Volume 7.5 fL (7.4-10.4); Platelet Count 430 thou/uL (130-400); RBC Distribution Width 12.2 % (11.5-14.5); White Blood Cell (WBC) Count 8.3 thou/uL (4.8-10.8)
[2021-05-30] MEDS: ALPRAZolam 0.25 MG TAB PO PRN ×2 (08:44→20:14)
[2021-05-30 08:52] LABS: Anion Gap 15 mmol/L (10-20); BUN (Urea Nitrogen) 24 mg/dL (9.8-20.1); Calc. Creatinine Clearance 62 mL/min (70-130); Carbon Dioxide 27 mmol/L (23-31); Chloride 102 mmol/L (98-107); Potassium 3.7 mmol/L (3.5-5.1); Sodium 140 mmol/L (136-145)
[2021-05-30 08:53] LABS: CRP (Inflammatory) 1.44 mg/dL (= or < 0.5); Calcium 9.8 mg/dL (7.8-10.44); Glucose 147 mg/dL (83-110)
[2021-05-30] MEDS: Enoxaparin Sodium 40 MG/0.4 ML SYRINGE SC SCH ×2 (10:59→20:24)
[2021-05-30 12:14] VITALS: BMI 29.4
[2021-05-30] MEDS: Zolpidem Tartrate 5 MG TAB PO PRN (20:14)
[2021-05-31] MEDS: Albuterol 200 PUFF (6.7GM INHALER) INH SCH ×4 (04:26→13:53)
[2021-05-31] MEDS: Levothyroxine Sodium 112 MCG TAB PO SCH (06:01)
[2021-05-31] MEDS: Mometasone 200 MCG/Formoterol 5 MCG 120 PUFF INHALER INH SCH (06:20)
[2021-05-31] MEDS: Ipratropium Oral Inhaler INH SCH ×3 (08:17→16:21)
[2021-05-31] MEDS: Ascorbic Acid 500 mg Chewable Tablet PO SCH (08:18)
[2021-05-31] MEDS: Cholecalciferol (Vitamin D3) 400 UNITS TAB PO SCH (08:19)
[2021-05-31] MEDS: Dexamethasone 10 MG/ML VIAL SLOW IVP SCH (08:19)
[2021-05-31] MEDS: Zinc Sulfate 220 MG CAP PO SCH (08:19)
[2021-05-31] MEDS: Enoxaparin Sodium 40 MG/0.4 ML SYRINGE SC SCH (08:20)
[2021-05-31] MEDS: ALPRAZolam 0.25 MG TAB PO PRN (13:50)
[2021-05-31 16:20] VITALS: BP 143/78; TEMP 97.5
== END 2021-05-31 17:18 | disposition home or self-care (01) | DRG 177 ==
LOC: ERS 17:40 → T4-B 20:12
PROVIDERS: ADMIT Student in an Organized Health Care Education/Training Program; ATTEND Internal Medicine
PROC: 8E0ZXY6 Isolation (ICD-10-PCS; principal; 2021-05-22)
DX: U07.1 COVID-19 (principal); J96.21 Acute and chronic respiratory failure with hypoxia; I50.31 Acute diastolic (congestive) heart failure; J44.1 Chronic obstructive pulmonary disease with (acute) exacerbation; E03.9 Hypothyroidism, unspecified; R91.1 Solitary pulmonary nodule; E11.9 Type 2 diabetes mellitus without complications; Z88.0 Allergy status to penicillin; Z88.5 Allergy status to narcotic agent; Z88.8 Allergy status to other drugs, medicaments and biological substances; Z88.7 Allergy status to serum and vaccine; I25.2 Old myocardial infarction; Z90.710 Acquired absence of both cervix and uterus; Z98.890 Other specified postprocedural states; Z87.891 Personal history of nicotine dependence; Z91.19 Patient's noncompliance with other medical treatment and regimen
CPT/HCPCS: 0240U; 36415; 71045; 71275; 80048; 80053; 82728; 83036; 83605; 83880; 84145; 84484; 85025; 86140; 87040; 93005; 93306; 96374; C9113; J0456; J1100; J1650; J1940; J1956; J7050; Q0162; Q9967

== ENCOUNTER 2022-04-14 00:34 | Inpatient (IN) | payer MEDICARE ==
[2022-04-14 01:05] LABS: #Eosinphils 0.1 thou/uL (0.0-0.7); #Lymphocytes 3.5 thou/uL (1.20-3.40); #Monocytes 0.7 thou/uL (0.11-0.59); #Neutrophils 3.4 thou/uL (1.40-6.50); %Basophils 0.5 % (0.0-1.0); %Eosinophils 1.1 % (0.0-10.0); %Lymphocytes 45.8 % (21.0-51.0); %Monocytes 8.7 % (0.0-10.0); Mean Corpuscular HGB CONC 32.5 g/dL (32.0-36.0); Mean Corpuscular Hemoglobin 31.8 pg (27.0-31.0); Mean Corpuscular Volume 97.9 fl (78.0-98.0); Mean Platelet Volume 7.4 fL (7.4-10.4); Platelet Count 332 10x3/uL (130-400); RBC Distribution Width 12.7 % (11.5-14.5); Red Blood Cell (RBC) Count 5.03 mill/uL (4.20-5.40); White Blood Cell (WBC) Count 7.6 10x3/uL (4.8-10.8)
[2022-04-14] MEDS ORDERED: Albuterol Sulfate 2.5 mg/0.5 ml Neb ONE ×2 (01:09→02:26)
[2022-04-14] MEDS ORDERED: Albuterol Sulfate 2.5 mg/3 ml Neb ONE ×3 (01:09→02:26)
[2022-04-14 01:25] LABS: ALT (SGPT) 8 U/L (8-55); AST (SGOT) 18 U/L (5-34); Albumin 4.4 g/dL (3.4-4.8); Alkaline Phosphatase 99 U/L (40-110); Anion Gap 16 mmol/L (10-20); BUN (Urea Nitrogen) 11 mg/dL (9.8-20.1); Bilirubin, Total 0.3 mg/dL (0.2-1.2); Calc. Creatinine Clearance 0 mL/min (70-130); Calcium 9.3 mg/dL (7.8-10.44); Carbon Dioxide 24 mmol/L (23-31); Chloride 101 mmol/L (98-107); Estimated GFR 67; Globulin 3.3 g/dL (2.4-3.5); Glucose 135 mg/dL (83-110); Potassium 3.3 mmol/L (3.5-5.1); Protein, Total 7.7 g/dL (5.8-8.1); Sodium 138 mmol/L (136-145)
[2022-04-14] MEDS ORDERED: predniSONE 20 MG TAB ONE ×2 (01:32→09:05)
[2022-04-14 04:42] LABS: SARS-CoV-2 NAA Rapid Test Not Detected (NotDetected)
[2022-04-14 06:02] VITALS: BMI 37.0
[2022-04-14] MEDS ORDERED: Levothyroxine Sodium 112 MCG TAB PO SCH (09:00)
[2022-04-14] MEDS: predniSONE 20 MG TAB PO SCH (09:19)
[2022-04-14] MEDS ORDERED: FLU VACC QS2022-23(65YR UP)/PF 240 MCG/0.7 ML SYRINGE IM ONE (16:30)
[2022-04-14] MEDS ORDERED: Potassium Chloride 20 MEQ TAB PO SCH (17:15)
[2022-04-14] MEDS ORDERED: Dextrose 50% Abboject 50 ML SYRINGE SLOW IVP PRN (17:25)
[2022-04-14] MEDS ORDERED: Dextrose 5% in Water 1,000 ML IV PRN (17:25)
[2022-04-14] MEDS ORDERED: HumaLOG 300 UNITS/3 ML VIAL SC PRN (17:25)
[2022-04-14] MEDS ORDERED: Melatonin 3 MG TAB PO SCH (21:00)
[2022-04-15] MEDS: Levothyroxine Sodium 112 MCG TAB PO SCH (05:45)
[2022-04-15] MEDS: PARoxetine 20 MG TAB PO SCH (08:56)
[2022-04-15] MEDS: predniSONE 20 MG TAB PO SCH (08:56)
[2022-04-16] MEDS: Levothyroxine Sodium 112 MCG TAB PO SCH (05:28)
[2022-04-16] MEDS: predniSONE 20 MG TAB PO SCH (09:11)
[2022-04-16] MEDS: PARoxetine 20 MG TAB PO SCH (09:11)
[2022-04-16 11:39] VITALS: BP 157/80; TEMP 97.8
== END 2022-04-16 11:52 | disposition home or self-care (01) | DRG 189 ==
LOC: ERS 00:34 → ERHOLD 03:04 → T4-A 03:05 → OBSVTOIN 04-15 15:30
PROVIDERS: ADMIT Internal Medicine; ATTEND Internal Medicine
DX: J96.21 Acute and chronic respiratory failure with hypoxia (principal); J44.1 Chronic obstructive pulmonary disease with (acute) exacerbation; Z20.822 Contact with and (suspected) exposure to COVID-19; E03.9 Hypothyroidism, unspecified; G47.33 Obstructive sleep apnea (adult) (pediatric); I25.10 Atherosclerotic heart disease of native coronary artery without angina pectoris; E87.6 Hypokalemia; F41.8 Other specified anxiety disorders; Z99.81 Dependence on supplemental oxygen; I25.2 Old myocardial infarction; Z95.5 Presence of coronary angioplasty implant and graft; Z88.5 Allergy status to narcotic agent; Z88.0 Allergy status to penicillin; Z88.7 Allergy status to serum and vaccine; Z88.8 Allergy status to other drugs, medicaments and biological substances; Z79.890 Hormone replacement therapy; Z79.51 Long term (current) use of inhaled steroids; Z79.899 Other long term (current) drug therapy; Z87.891 Personal history of nicotine dependence
CPT/HCPCS: 36415; 36416; 71045; 80053; 84484; 85025; 93005; 94640; G0378; J7512; J7611; J7620; U0002

== ENCOUNTER 2023-05-04 12:37 | Emergency (ER) | payer MEDICARE, OTHER | END 2023-05-04 14:05 | disposition home or self-care (01) | LOC: ERS 12:37 | DX: S82.831A Other fracture of upper and lower end of right fibula, initial encounter for closed fracture (principal); J44.9 Chronic obstructive pulmonary disease, unspecified; E03.9 Hypothyroidism, unspecified; Z87.891 Personal history of nicotine dependence; W01.0XXA Fall on same level from slipping, tripping and stumbling without subsequent striking against object, initial encounter | CPT/HCPCS: 27788; 70450; 72125 ==